=== PATIENT | female | born 1980 | race Caucasian/White ===

== ENCOUNTER 2019-07-02 13:32 | Observation (INO) | payer OTHER ==
--- NOTE | 2019-07-02 14:43 | ED ---
Extremity Problem HPI - General Chief complaint: Extremity Problem,Nontraumatic Stated complaint: hand swelling/anxiety Time Seen by Provider: 07/02/19 13:59 Source: patient Mode of arrival: ambulatory - History of Present Illness Initial comments: 30-year-old female presents to the emergency room today for evaluation of erythema swelling and pain to the left hand and wrist. Patient uses methamphetamines on a regular basis. She states that she noticed erythema and swelling over the past day and a half. She checked into [facility] today and he sent her to the emergency room for evaluation. Patient has increasing amounts of swelling and pain with flexion and extension of the wrist. She has pain with flexion and extension of the fingers overlying the dorsal as pect of the hand. Patient denies any pain in flexion and extension of the elbow. She reports 103 measured temperature earlier today. She was given medications at [facility]. She denies any headache dizziness or light headedness. No chest pain, shortness breath or thing breathing. Movement makes worse rest makes better. No other complaints. - Related Data Allergies Allergy/AdvReac Type Severity Reaction Status Date / Time No Known Allergies Allergy Verified 07/02/19 14:53 Review of Systems ROS Statement: Those systems with pertinent positive or pertinent negative responses have been documented in the HPI. ROS Other: All systems not noted in ROS Statement are negative. Past Medical History Past Medical History: No Reported History History of Any Multi-Drug Resistant Organisms: None Reported Past Surgical History: No Surgical Hx Reported Smoking Status: Current every day smoker Past Alcohol Use History: None Reported Past Drug Use History: Methamphetamine General Exam Limitations: no limitations General appearance: alert, in no apparent distress, anxious Head exam: Present: atraumatic, normocephalic Eye exam: Present: normal appearance Respiratory exam: Present: normal lung sounds bilaterally Cardiovascular Exam: Present: regular rate, normal rhythm, normal heart sounds GI/Abdominal exam: Present: soft, normal bowel sounds. Absent: distended, tenderness Extremities exam: Present: tenderness (There is erythema and warmth overlying the dorsal aspect of the left hand extending proximal to the left wrist. The erythema extends to the mid aspect of the forearm. There is trace pitting edema overlying the dorsal aspect of the left hand and wrist. Pain with flexion and extension with guarding of the flexion-extension of the left wrist. Patient has full range of motion of bilateral phalanges. There are 2+ radial and ulnar pulses. Capillary refills less than 2 seconds. Sensation is intact. No tenderness in the elbow.), normal capillary refill Neurological exam: Present: alert, oriented X3 Psychiatric exam: Present: normal affect, normal mood Skin exam: Present: warm, erythema (left dorsal hand and wrist, warm to the touch, area of nonfluctuant induration overlying the dorsal aspect of the forearm mid forearm radial aspect measures approximately 4 cm in diameter) Course Vital Signs 07/02/19 07/02/19 13:47 16:52 Temperature 97.8 F Pulse Rate 92 95 Respiratory 18 18 Rate Blood Pressure 119/70 110/61 O2 Sat by Pulse 99 99 Oximetry Medical Decision Making - Medical Decision Making 39-year-old female that presents the emergency room today for evaluation of erythema warmth and swelling to the left wrist hand and forearm. Guarded range of motion secondary to pain and swelling. This is consistent with a cellulitis. It is warm to the touch. Induration without fluctuant abscess formation overlying the dorsal aspect of the left arm. Patient has history of m ethamphetamine use, IV. Laboratory was completed which is normal. Lactic acid normal. Patient was given a dose of vancomycin and Zosyn. Patient will be admitted to the hospital for treatment of the cellulitis. She verbalizes understanding and agreement with this plan and care. - Lab Data Result diagrams: 07/02/19 14:55 07/02/19 14:55 Lab Results 07/02/19 07/02/19 07/02/19 Range/Units 14:55 14:55 14:55 WBC 7.3 (3.8-10.6) k/uL RBC 4.78 (3.80-5.40) m/uL Hgb 13.6 (11.4-16.0) gm/dL Hct 42.8 (34.0-46.0) % MCV 89.6 (80.0-100.0) fL MCH 28.5 (25.0-35.0) pg MCHC 31.8 (31.0-37.0) g/dL RDW 13.2 (11.5-15.5) % Plt Count 414 (150-450) k/uL Neutrophils % 64 % Lymphocytes % 18 % Monocytes % 7 % Eosinophils % 6 % Basophils % 2 % Neutrophils # 4.7 (1.3-7.7) k/uL Lymphocytes # 1.3 (1.0-4.8) k/uL Monocytes # 0.5 (0-1.0) k/uL Eosinophils # 0.4 (0-0.7) k/uL Basophils # 0.2 (0-0.2) k/uL Sodium 139 (137-145) mmol/L Potassium 3.9 (3.5-5.1) mmol/L Chloride 103 (98-107) mmol/L Carbon Dioxide 29 (22-30) mmol/L Anion Gap 7 mmol/L BUN 10 (7-17) mg/dL Creatinine 0.66 (0.52-1.04) mg/dL Est GFR (CKD-EPI)AfAm >90 (>60 ml/min/1.73 sqM) Est GFR (CKD-EPI)NonAf >90 (>60 ml/min/1.73 sqM) Glucose 89 (74-99) mg/dL Plasma Lactic Acid Bret 1.1 (0.7-2.0) mmol/L [facility] 8.7 (8.4-10.2) mg/dL Total Bilirubin 0.4 (0.2-1.3) mg/dL AST 24 (14-36) U/L ALT 21 (4-34) U/L Alkaline Phosphatase 116 (38-126) U/L Total Protein 7.9 (6.3-8.2) g/dL Albumin 3.9 (3.5-5.0) g/dL Disposition Clinical Impression: Cellulitis and abscess of hand, Cellulitis of left forearm Disposition: ADMITTED IP TO THIS HOSP Condition: Stable Is patient prescribed a controlled substance at d/c from ED?: No When asked, does pt state using other controlled substances?: Yes Referrals: None,Stated [Primary Care Provider] - 1-2 days
[2019-07-02 15:22] LABS: Basophils # (A) 0.2 k/uL (0-0.2); Basophils % (A) 2 %; Eosinophils # (A) 0.4 k/uL (0-0.7); Eosinophils % (A) 6 %; HCT 42.8 % (34.0-46.0); HGB 13.6 gm/dL (11.4-16.0); Lymphocytes # (A) 1.3 k/uL (1.0-4.8); Lymphocytes % (A) 18 %; MCH 28.5 pg (25.0-35.0); MCHC 31.8 g/dL (31.0-37.0); MCV 89.6 fL (80.0-100.0); Mean Platelet Volume 7.3; Monocytes # (A) 0.5 k/uL (0-1.0); Monocytes % (A) 7 %; Neutrophils # (A) 4.7 k/uL (1.3-7.7); Neutrophils % (A) 64 %; Platelet Count 414 k/uL (150-450); RBC 4.78 m/uL (3.80-5.40); RDW 13.2 % (11.5-15.5); WBC 7.3 k/uL (3.8-10.6)
[2019-07-02 15:25] LABS: ALT 21 U/L (4-34); AST 24 U/L (14-36); African American GFR (CKD) >90 (>60 ml/min/1.73 sqM); Albumin 3.9 g/dL (3.5-5.0); Alkaline Phosphatase 116 U/L (38-126); Anion Gap 7 mmol/L; Blood Urea Nitrogen 10 mg/dL (7-17); Calcium 8.7 mg/dL (8.4-10.2); Carbon Dioxide 29 mmol/L (22-30); Chloride 103 mmol/L (98-107); Glucose 89 mg/dL (74-99); Non-African American GFR(CKD) >90 (>60 ml/min/1.73 sqM); Potassium 3.9 mmol/L (3.5-5.1); Sodium 139 mmol/L (137-145); Total Bilirubin 0.4 mg/dL (0.2-1.3); Total Protein 7.9 g/dL (6.3-8.2)
[2019-07-02] MEDS ORDERED: KETOROLAC 30 MG/ML 1 ML VIAL IVP STA (16:38)
[2019-07-02] MEDS ORDERED: PIPERACILLIN-TAZOBACTAM 3.375 GM in SODIUM CHLORIDE 0.9% 100 ML IVPB STA (16:38)
[2019-07-02] MEDS ORDERED: VANCOMYCIN IV PER PHARMACY 1 EACH MISC MISCELLANE PRN (16:38)
[2019-07-02] MEDS ORDERED: VANCOMYCIN 1,500 MG in SODIUM CHLORIDE 0.9% 250 ML IVPB ONE (16:45)
[2019-07-02] MEDS ORDERED: ACETAMINOPHEN TAB 325 MG TAB PO PRN (16:58)
[2019-07-02] MEDS ORDERED: NALOXONE 0.4 MG/ML 1 ML VIAL IV PRN (16:58)
[2019-07-02] MEDS ORDERED: IBUPROFEN 400 MG TAB PO PRN (16:58)
[2019-07-02] MEDS ORDERED: ONDANSETRON 4 MG/2 ML VIAL IVP PRN (16:58)
--- NOTE | 2019-07-02 17:56 | P.HPIM ---
History of Present Illness H&P Date: 07/02/19 Chief Complaint: Left hand swelling 39-year-old female with depression him a IV drug abuse Patient comes in today due to swelling and redness of her left hand claims to be of 2 day duration after missing the vein while trying to inject herself with crystal meth. Patient advanced to IV drug abuse. She reports fevers at home she noticed that swelling and redness was progressing to the point where she is having pain when she is moving her hand redness extends up to the mid forearm pain is reported to be 10 out of 10 in severity sharp shooting pains especially when she tries to use the extremity no open wounds no drainage. She claims that she never had any infection like this before she denies any history of endocarditis. She denies any alcohol use she denies any smoking. Patient claims to not taking any medications at home other than antidepressant which she claims to be compliant with them. In the ED her vital signs and initial labs were pre-much unremarkable patient was admitted for IV antibiotics, to follow up cultures, and close monitoring for at least 24 hours Review of Systems Pertinent positives as noted in HPI. All other systems were reviewed and are negative Past Medical History Past Medical History: No Reported History History of Any Multi-Drug Resistant Organisms: None Reported Past Surgical History: No Surgical Hx Reported Past Psychological History: Depression Smoking Status: Current every day smoker Past Alcohol Use History: None Reported Past Drug Use History: Methamphetamine - Past Family History Family Family Medical History: No Reported History Medications and Allergies Allergies Allergy/AdvReac Type Severity Reaction Status Date / Time No Known Allergies Allergy Verified 07/02/19 14:53 Physical Exam Vitals: Vital Signs Temp Pulse Resp BP Pulse Ox 07/02/19 16:52 95 18 110/61 99 07/02/19 13:47 97.8 F 92 18 119/70 99 Intake and Output 07/02/19 07/02/19 07/02/19 06:59 14:59 22:59 Other: Weight 86.183 kg Constitutional: No acute distress, conversant, pleasant Eyes: Anicteric sclerae, moist conjunctiva, Pupils equal round reactive to light ENMT: NC/AT Oropharynx clear, no erythema, exudates Neck: Supple, FROM, no masses, or JVD No carotid bruits No thyromegaly Lungs: Clear to auscultation Clear to percussion Normal respiratory effort, no accessory muscle use Cardiovascular: Heart regular in rate and rhythm, No murmurs, gallops, or rubs No peripheral edema Abdominal: Soft Nontender, no guarding, rebound or rigidity Abdomen moving with respiration Normoactive bowel sounds No hepatomegaly, No splenomegaly No palpable mass No abdominal wall hernia noted Skin: Extensive redness and swelling of the left hand extending up to the mid left forearm mainly on the dorsal aspect with an area over the mid forearm that is slightly swollen and fluctuant no drainage warm to the touch. Tenderness to passive and active motion of the fingers over the left hand. Capillary refill is immediate over the left fingers. Multiple bruises over the right forearm and hand over the dorsum of the right hand indicative of IV drug abuse sites. Otherwise Normal temperature, tone, texture, turgor Extremities: No digital cyanosis No clubbing Pedal pulses intact and symmetrical Radial pulses intact and symmetrical No calf tenderness Psychiatric: Alert and oriented to person, place and time Appropriate affect fair judgement Neuro Muscles Strength 5/5 in all 4 extremities Sensation to light touch grossly present throughout Cranial nerves II-XII grossly intact No focal sensory deficits Lymphatics: no palpable cervical or supraclavicular , or inguinal lymph n odes Results CBC & Chem 7: 07/02/19 14:55 07/02/19 14:55 Assessment and Plan Assessment: 39-year-old female with with depression, and IV drug abuse. Comes in due to swelling redness and fevers over her left hand extending to the mid left forearm. Due to IV drug abuse. Patient admitted for cellulitis of the left upper extremity and left hand degenerative drug abuse with anticipated length of stay less than tWo midnight Plan: Cellulitis of the left hand and forearm with left hand swelling IV drug abuse Neurovascular assessment of the left hand every 4 hours Elevation of the left upper extremity Toradol when necessary Vancomycin Follow-up cultures ID consultation Patient counseled to quit drug of abuse Xanax when necessary for anxiety Depression Resume home meds DVT prophylaxis heparin subcu 3 times a day CODE STATUS: Full code Discussed with: Patient, ER, RN Anticipated length of stay less than [address]: Home A total of 60 minutes was spent on the care of this complex patient more than 50% of the time was spent in counseling and care coordination.
[2019-07-02] MEDS: ALPRAZolam 1 MG TAB PO PRN (18:26)
[2019-07-02] MEDS: SODIUM CHLORIDE 0.9% 1,000 ML IV SCH (22:12)
[2019-07-02] MEDS: KETOROLAC 30 MG/ML 1 ML VIAL IVP PRN (22:13)
[2019-07-02] MEDS: HEPARIN SODIUM,PORCINE 5,000 UNIT/ML 1 ML VIAL SQ SCH (22:13)
[2019-07-03] MEDS: ALPRAZolam 1 MG TAB PO PRN ×4 (02:21→21:09)
[2019-07-03] MEDS: VANCOMYCIN 1,500 MG in SODIUM CHLORIDE 0.9% 250 ML IVPB SCH ×3 (02:22→17:43)
[2019-07-03] MEDS: SODIUM CHLORIDE 0.9% 1,000 ML IV SCH ×3 (05:27→21:52)
--- NOTE | 2019-07-03 07:00 | CONS ---
CONSULTATION REASON FOR CONSULTATION: Left hand cellulitis. HISTORY OF PRESENT ILLNESS: The patient is a 39-year-old female with a past medical history significant for IV drug use, presenting to the ER at [facility] with chief complaints of left hand swelling and redness that has been going on for the last 2 days. Apparently the patient does use methamphetamine on a regular basis and she injected last about 2 days ago possibly missed the vein. The area subsequent becoming swollen, red and painful. The patient describes the pain to be throbbing at times almost 10/10 in severity with associated swelling and redness of the left hand dorsum as well as to the wrist area. The patient apparently did have a fever of 103 degrees Fahrenheit this morning for which the patient has been sent to the [facility] for further evaluation. On arrival to the ER, the patient was afebrile. However, the patient has been slightly tachycardic. White count was normal. The patient did have blood cultures drawn and she has been started on vancomycin. Infectious Disease was consulted for further recommendations regarding antibiotic therapy. REVIEW OF SYSTEMS: Positive points have been mentioned in HPI. Rest of the systems are negative. PAST MEDICAL HISTORY: Drug use. PAST SURGICAL HISTORY: No surgeries. SOCIAL HISTORY: Current everyday smoker and did admit to methamphetamine use. ALLERGIES: No known drug allergies. MEDICATIONS: Medications currently include the patient is on vancomycin 1500 mg q.8 hour. She is on IV fluids, Zofran, Narcan, Toradol, Motrin, heparin, Xanax, and Tylenol. PHYSICAL EXAMINATION: Blood pressure is 128/82 with a pulse of 101, temperature 97.8. She is 100% on room air. General description is a middle-aged female, lying in bed in no distress. No tachypnea or accessory muscle of respiration use. HEENT: Examination shows no pallor or scleral icterus. Oral mucous membranes dry. No pharyngeal erythema or thrush. NECK: Trachea central. No thyromegaly. LUNGS: Unlabored breathing, clear to auscultation anteriorly. No wheeze or crackle. HEART: S1, S2. Regular rate and rhythm. No added sounds. ABDOMEN: Soft, no tenderness. No guarding or rigidity. Left hand dorsum did have swelling, redness and no induration or fluctuation was noticed which is area slightly warm and tender to touch. No drainage. NEUROLOGICALLY: Patient is awake, alert, oriented x3. Mood and affect normal. LABS: Hemoglobin 136, white count 7.3. Creatinine 0.66. Blood cultures obtained which are currently pending. DIAGNOSTIC IMPRESSION AND PLAN: Patient with left hand dorsum cellulitis in this patient who apparently missed a vein when she was injecting her methamphetamine with history of IV drug use, highly concerning for a gram-positive skin infection from a gram-positive bacteria such as strep and possibly this is methicillin-resistant Staphylococcus aureus, less likely gram-negative infection. PLAN: 1. Vancomycin pharmacy to dose target of 15 while watching the kidney function and Vanco trough closely. 2. Marked the area of redness. 3. We will follow up on clinical condition and culture to further adjust medication if needed. Thank you for this consultation. Will follow this patient along with you. MMHENOKL / IJN: [id number] /
[2019-07-03] MEDS ORDERED: VANCOMYCIN IV PER PHARMACY 1 EACH MISC MISCELLANE PRN (07:52)
[2019-07-03 08:23] LABS: Basophils # (A) 0.1 k/uL (0-0.2); Basophils % (A) 1 %; Eosinophils # (A) 0.5 k/uL (0-0.7); Eosinophils % (A) 9 %; HCT 39.1 % (34.0-46.0); HGB 11.9 gm/dL (11.4-16.0); Lymphocytes # (A) 1.1 k/uL (1.0-4.8); Lymphocytes % (A) 18 %; MCHC 30.5 g/dL (31.0-37.0); Mean Platelet Volume 7.5; Monocytes # (A) 0.4 k/uL (0-1.0); Monocytes % (A) 6 %; Neutrophils # (A) 3.8 k/uL (1.3-7.7); Neutrophils % (A) 64 %; Platelet Count 331 k/uL (150-450); RBC 4.25 m/uL (3.80-5.40); RDW 13.1 % (11.5-15.5); WBC 5.9 k/uL (3.8-10.6)
[2019-07-03 08:35] LABS: ALT 19 U/L (4-34); AST 23 U/L (14-36); African American GFR (CKD) >90 (>60 ml/min/1.73 sqM); Albumin 3.2 g/dL (3.5-5.0); Alkaline Phosphatase 91 U/L (38-126); Anion Gap 8 mmol/L; Blood Urea Nitrogen 14 mg/dL (7-17); Calcium 8.1 mg/dL (8.4-10.2); Carbon Dioxide 24 mmol/L (22-30); Chloride 106 mmol/L (98-107); Glucose 132 mg/dL (74-99); Non-African American GFR(CKD) >90 (>60 ml/min/1.73 sqM); Potassium 3.9 mmol/L (3.5-5.1); Sodium 138 mmol/L (137-145); Total Bilirubin 0.5 mg/dL (0.2-1.3); Total Protein 6.9 g/dL (6.3-8.2)
[2019-07-03] MEDS: HEPARIN SODIUM,PORCINE 5,000 UNIT/ML 1 ML VIAL SQ SCH ×3 (08:53→21:09)
[2019-07-03] MEDS: KETOROLAC 30 MG/ML 1 ML VIAL IVP PRN ×3 (08:56→19:22)
--- NOTE | 2019-07-03 13:29 | P.PN ---
Subjective Progress Note Date: 07/03/19 Principal diagnosis: Patient seen for follow-up left upper extremity cellulitis of the forearm and hand due to IV drug abuse Patient seen and examined denies any fevers or chills reports less pain when she moves the hand now she feels her swelling has went down redness is improving denies any chest pain or trouble breathing otherwise Tolerating by mouth intake denies nausea vomiting Objective - Vital Signs Vital signs: Vital Signs Temp 98.4 F 07/03/19 07:21 Pulse 78 07/03/19 07:21 Resp 16 07/03/19 07:21 BP 115/82 07/03/19 07:21 Pulse Ox 100 07/03/19 07:21 Intake & Output 07/02/19 07/03/19 07/03/19 18:59 06:59 18:59 Weight 86.183 kg - Exam Constitutional: vital signs stable, Not in acute distress, pleasant, conversant Lungs: Clear to auscultation bilaterally, clear to percussion, normal respiratory effort Cardiovascular: Regular rate and rhythm, no murmurs, no gallops, no rubs, no peripheral edema Skin: Examination of the skin over the left hand and forearm showing regression of the erythema and induration. No tenderness to palpation. No drainage no open wounds Extremities: Left hand swelling has improved compared to yesterday, capillary refill is immediate over the left hand, some discomfort with passive and active movement of the left fingers but improved compared to yesterday. Psych: Alert, oriented to place, person and time, appropriate affect, intact judgment - Labs CBC & Chem 7: 07/03/19 07:52 07/03/19 07:52 Labs: Abnormal Lab Results - Last 24 Hours (Table) 07/03/19 07/03/19 Range/Units 07:52 07:52 MCHC 30.5 L (31.0-37.0) g/dL Glucose 132 H (74-99) mg/dL [facility] 8.1 L (8.4-10.2) mg/dL Albumin 3.2 L (3.5-5.0) g/dL Assessment and Plan Assessment: 39-year-old female with with depression, and IV drug abuse. Comes in due to swelling redness and fevers over her left hand extending to the mid left forearm. Due to IV drug abuse. Patient admitted for cellulitis of the left upper extremity and left hand degenerative drug abuse with anticipated length of stay less than tWo midnight 07/03 Patient doing better today continues to be on vancomycin ID agrees with current antibiotics continue to monitor and follow up on blood culture results. Optimize pain control Await final culture results and ID recommendations for discharge planning possibly tomorrow Plan: Cellulitis of the left hand and forearm with left hand swelling IV drug abuse Neurovascular assessment of the left hand every 4 hours Elevation of the left upper extremity Toradol when necessary Vancomycin, dosing by pharmacy Follow-up cultures ID following Patient counseled to quit drug of abuse Xanax when necessary for anxiety Depression Resume home meds DVT prophylaxis heparin subcu 3 times a day Possible discharge 07/04, still await final blood culture results for final antibiotics recommendations
--- NOTE | 2019-07-03 22:21 | PN ---
PROGRESS NOTE DATE OF SERVICE: 07/03/2019 REASON FOR FOLLOWUP: Right hand dorsum and forearm abscess and cellulitis secondary to drug use. INTERVAL HISTORY: The patient is currently afebrile. She has been breathing comfortably. Pain to the left hand dorsum and the forearm has slightly decreased. She still has a slight area of swelling, but no open area or any drainage. Denies having any chest pain, shortness of breath or cough. No abdominal pain or diarrhea. PHYSICAL EXAMINATION: Blood pressure 158/70 with a pulse of 88, temperature 97.5. She is 97% on room air. General description is a middle-aged female lying in bed in no distress. RESPIRATORY SYSTEM: Unlabored breathing. Clear to auscultation anteriorly. HEART: S1, S2. Regular rate and rhythm. ABDOMEN: Soft. No tenderness. Left hand dorsum and the forearm small area of swelling. No fluctuation. It is mostly indurated and some redness. LABS: Blood culture has been negative. White count normal. DIAGNOSTIC IMPRESSION AND PLAN: Patient with left hand dorsum and forearm cellulitis and small abscess from injection drug use, likely from a Gram-positive skin ang. Showing some clinical improvement. The vancomycin will be continued. The area has been marked to make sure it is regressing and not getting any bigger. If the area becomes fluctuant, may benefit from drainage. Not currently, though. Will reevaluate the patient tomorrow and continue with supportive care. MMODL / IJN: [id number] /
[2019-07-04] MEDS ORDERED: VANCOMYCIN TROUGH DUE 1 EACH MISC MISCELLANE ONE (01:00)
[2019-07-04 01:40] LABS: African American GFR (CKD) >90 (>60 ml/min/1.73 sqM); Non-African American GFR(CKD) >90 (>60 ml/min/1.73 sqM)
[2019-07-04] MEDS: VANCOMYCIN 1,500 MG in SODIUM CHLORIDE 0.9% 250 ML IVPB SCH (02:07)
[2019-07-04] MEDS: ALPRAZolam 1 MG TAB PO PRN ×3 (06:10→17:29)
[2019-07-04] MEDS: KETOROLAC 30 MG/ML 1 ML VIAL IVP PRN ×3 (06:10→21:39)
[2019-07-04] MEDS: HEPARIN SODIUM,PORCINE 5,000 UNIT/ML 1 ML VIAL SQ SCH ×3 (08:18→21:31)
[2019-07-04] MEDS: SODIUM CHLORIDE 0.9% 1,000 ML IV SCH ×2 (09:19→18:46)
[2019-07-04] MEDS: VANCOMYCIN 1,250 MG in SODIUM CHLORIDE 0.9% 250 ML IVPB SCH ×2 (09:24→17:26)
--- NOTE | 2019-07-04 09:43 | P.PN ---
Subjective Progress Note Date: 07/04/19 Principal diagnosis: Patient seen for follow-up left upper extremity cellulitis of the forearm and hand due to IV drug abuse Patient seen and examined denies any fevers or chills she is still concerned about her hand , still a little swollen but improving on daily basis , denies any pain with movement tolerating PO intake Objective - Vital Signs Vital signs: Vital Signs Temp 97.8 F 07/04/19 05:09 Pulse 81 07/04/19 05:09 Resp 20 07/04/19 08:00 BP 136/99 07/04/19 05:09 Pulse Ox 100 07/04/19 05:09 Intake & Output 07/03/19 07/04/19 07/04/19 18:59 06:59 18:59 Intake Total 540 1200 Balance 540 1200 Weight 86.183 kg Intake: Oral 540 1200 Other: # Voids 1 1 - Exam Constitutional: vital signs stable, Not in acute distress, pleasant, conversant Lungs: Clear to auscultation bilaterally, clear to percussion, normal respiratory effort Cardiovascular: Regular rate and rhythm, no murmurs, no gallops, no rubs, no peripheral edema Skin: Erythema improved significantly now its concise to 2 locations with some induration and mild fluctuation 1 over the dorsum of the left wrist and the other over the dorsum mid left forearm no tenderness to palpation no drainage. No tenderness to palpation. No drainage no open wounds Extremities: Left hand swelling has improved compared to yesterday, capillary refill is immediate over the left hand, minimal discomfort to active range of motion. Psych: Alert, oriented to place, person and time, appropriate affect, intact judgment - Labs CBC & Chem 7: 07/03/19 07:52 07/04/19 01:10 Labs: Microbiology - Last 24 Hours (Table) 07/02/19 14:55 Blood Culture - Preliminary Blood No Growth after 24 hours Assessment and Plan Assessment: 39-year-old female with with depression, and IV drug abuse. Comes in due to swelling redness and fevers over her left hand extending to the mid left forearm. Due to IV drug abuse. Patient admitted for cellulitis of the left upper extremity and left hand degenerative drug abuse with anticipated length of stay less than tWo midnight 07/03 Patient doing better today continues to be on vancomycin ID agrees with current antibiotics continue to monitor and follow up on blood culture results. Optimize pain control Await final culture results and ID recommendations for discharge planning possibly tomorrow 07/04 Patient shows significant improvement currently on vancomycin. Blood cultures negative To areas of erythema and induration with slight fluctuation concerning for underlying abscess Swelling of the hand has improved significantly minimal discomfort with active range of motion. Await general surgery evaluation for need of drainage Possible discharge in the morning, on oral antibiotics Plan: Cellulitis of the left hand and forearm with left hand swelling, improving 2 areas of erythema and induration concerning for underlying small abscess, will obtain general surgery input regarding any drainage IV drug abuse Neurovascular assessment of the left hand every 4 hours Elevation of the left upper extremity Toradol when necessary Vancomycin, dosing by pharmacy Follow-up cultures, negative to date ID following Patient counseled to quit drug of abuse Xanax when necessary for anxiety Depression Resume home meds DVT prophylaxis heparin subcu 3 times a day Possible discharge 07/05 Await further improvement in the swelling of the left hand Await surgery evaluation regarding drainage Await final recommendations from ID regarding antibiotic choice, possibly Eliseo trim
[2019-07-04 10:00] LABS: ALT 22 U/L (4-34); AST 32 U/L (14-36); African American GFR (CKD) >90 (>60 ml/min/1.73 sqM); Albumin 3.4 g/dL (3.5-5.0); Alkaline Phosphatase 99 U/L (38-126); Anion Gap 9 mmol/L; Blood Urea Nitrogen 16 mg/dL (7-17); Calcium 8.5 mg/dL (8.4-10.2); Carbon Dioxide 23 mmol/L (22-30); Chloride 108 mmol/L (98-107); Glucose 80 mg/dL (74-99); Non-African American GFR(CKD) >90 (>60 ml/min/1.73 sqM); Sodium 140 mmol/L (137-145); Total Bilirubin 0.5 mg/dL (0.2-1.3); Total Protein 7.3 g/dL (6.3-8.2)
[2019-07-04 10:18] LABS: Potassium 4.6 mmol/L (3.5-5.1)
--- NOTE | 2019-07-04 11:00 | P.CNOR ---
History of Present Illness - [facility] Consult date: 07/03/19 Consult reason: other History of present illness: Patient is a 30-year-old female seen at bedside this morning in consultation for left wrist pain and swelling. She presented to the emergency room on 07/02/2019 with complaints of erythema, swelling and pain to the left hand and wrist. Patient stated that she uses methamphetamines on a regular basis. She states that she noticed erythema and swelling at the injection sites of her left arm for the past 2 days.. She checked into [facility] where she was then sent her to the emergency room for evaluation. Patient has pain with flexion and extension of the wrist. She states that it has improved some over the past 24 hours or so since being on antibiotics. She is denying numbness or tingling. She is currently denying fever or chills. Patient denies any pain in flexion and extension of the elbow. Review of Systems All systems: negative Past Medical History Past Medical History: No Reported History History of Any Multi-Drug Resistant Organisms: None Reported Past Surgical History: Appendectomy Past Anesthesia/Blood Transfusion Reactions: No Reported Reaction Past Psychological History: Depression Smoking Status: Current every day smoker Past Alcohol Use History: None Reported Past Drug Use History: Methamphetamine - Past Family History Family Family Medical History: Hypertension Medications and Allergies Home Medications Medication Instructions Recorded Confirmed Type ARIPiprazole [Abilify] 5 mg PO DAILY 07/02/19 07/02/19 History Citalopram Hydrobromide 10 mg PO DAILY 07/02/19 07/02/19 History [Citalopram HBr] busPIRone HCL 15 mg PO BID 07/02/19 07/02/19 History traZODone HCL 100 mg PO HS 07/02/19 07/02/19 History Allergies Allergy/AdvReac Type Severity Reaction Status Date / Time No Known Allergies Allergy Verified 07/02/19 18:14 Physical Examination Inspection of the left upper extremity shows 2 areas of induration at the dorsum of the wrist and midforearm. There is no active bleeding or drainage. These are circular in nature and measured approximately 3 cm. There is no streaking. There is mild surrounding erythema. There is no focal fluid collection in the area of the dorsum of the hand, wrist and forearm. Neurovascular status is intact with full motor and sensation throughout the left upper extremity. She does have pain with wrist extension and flexion as well as finger extension and flexion. She has painless range of motion of the elbow and shoulder. 2+ radial pulses present. Less than 2 second capillary refill is present. Results - Labs Labs: Abnormal Lab Results - Last 24 Hours (Table) 07/04/19 Range/Units 08:49 Chloride 108 H (98-107) mmol/L Albumin 3.4 L (3.5-5.0) g/dL Microbiology - Last 24 Hours (Table) 07/02/19 14:55 Blood Culture - Preliminary Blood No Growth after 24 hours H & H 07/02/19 07/03/19 Range/Units 14:55 07:52 Hgb 13.6 11.9 (11.4-16.0) gm/dL Hct 42.8 39.1 (34.0-46.0) % Result Diagrams: 07/03/19 07:52 07/04/19 08:49 Assessment and Plan (1) Cellulitis and abscess of hand Narrative/Plan: There are no plans for immediate surgical intervention as there is no appreciabl e focal abscess or fluid collection that can be incised and drained. Recommend continued IV antibiotics per infectious disease as well as elevation. We'll also order x-rays of the wrist and forearm. We will continue to monitor and make further recommendations as appropriate. Current Visit: Yes Status: Acute Priority: Medium Code(s): L03.119 - CELLULITIS OF UNSPECIFIED PART OF LIMB; L02.519 - CUTANEOUS ABSCESS OF UNSPECIFIED HAND SNOMED Code(s): 753845074 (2) Cellulitis of left forearm Current Visit: Yes Status: Acute Priority: Medium Code(s): L03.114 - CELLULITIS OF LEFT UPPER LIMB SNOMED Code(s): 31869838 Time with Patient: Less than 30
--- NOTE | 2019-07-04 11:51 | P.PN ---
Subjective Progress Note Date: 07/04/19 Principal diagnosis: left wrist/forearm cellulitis Patient is seen at bedside this morning. We are following for her left wrist and forearm cellulitis. She has no new complaints today. She feels like it has continued to improve some. She has been on IV antibiotics per ID. She feels her hand and finger movement is improved with less pain. She denies numbness, tingling, fever, chills or other. Objective - Vital Signs Vital signs: Vital Signs Temp 97.8 F 07/04/19 05:09 Pulse 81 07/04/19 05:09 Resp 20 07/04/19 08:00 BP 136/99 07/04/19 05:09 Pulse Ox 100 07/04/19 05:09 Intake & Output 07/03/19 07/04/19 07/04/19 18:59 06:59 18:59 Intake Total 540 1200 Balance 540 1200 Weight 86.183 kg Intake: Oral 540 1200 Other: # Voids 1 1 - Exam Inspection of the left upper extremity shows 2 demarcated indurated areas at the dorsum of the wrist and forearm as before without signs of worsening. The mild diffuse erythema and swelling of the hand and forearm are improved versus yesterday. She has less pain with wrist/finger flexion and extension. There is no appreciable focal abcess or fluid collection. It is not overly hot to touch. Motor and sensation intact throughout left upper extremity. 2+ radial pulse and less than 2 sec cap refill present. - Constitutional General appearance: Present: no acute distress - Labs CBC & Chem 7: 07/03/19 07:52 07/04/19 08:49 Labs: Abnormal Lab Results - Last 24 Hours (Table) 07/04/19 Range/Units 08:49 Chloride 108 H (98-107) mmol/L Albumin 3.4 L (3.5-5.0) g/dL Microbiology - Last 24 Hours (Table) 07/02/19 14:55 Blood Culture - Preliminary Blood No Growth after 24 hours Assessment and Plan (1) Cellulitis and abscess of hand Narrative/Plan: There continues to be no plans for immediate surgical intervention as she is showing signs of improvement as well as there is no appreciable focal abscess or fluid collection that can be incised and drained. She is also afebrile and her WBC is WNL. Recommend continued IV antibiotics per infectious disease as well as elevation of the left upper extremity. X-rays of the wrist and forearm are pending. We will continue to monitor and make further recommendations as appropriate. Current Visit: Yes Status: Acute Priority: Medium Code(s): L03.119 - CELLULITIS OF UNSPECIFIED PART OF LIMB; L02.519 - CUTANEOUS ABSCESS OF UNSPECIFIED HAND SNOMED Code(s): 127677240 (2) Cellulitis of left forearm Current Visit: Yes Status: Acute Priority: Medium Code(s): L03.114 - CELLULITIS OF LEFT UPPER LIMB SNOMED Code(s): 65997181
--- NOTE | 2019-07-04 14:17 | XR ---
Left forearm HISTORY: Cellulitis, infection 2 views of the left forearm Bone mineralization, joint spaces and alignment are maintained. There is no fracture or dislocation. No radiopaque foreign body. There is soft tissue swelling. No evident periosteal reaction to suggest osteomyelitis. IMPRESSION: Correlate for edema, cellulitis, follow-up as indicated.
--- NOTE | 2019-07-04 14:29 | XR ---
Left wrist HISTORY: Left wrist cellulitis 2 views of the left wrist Bone mineralization, joint spaces and alignment are maintained. No fracture or dislocation. Question soft tissue swelling. IMPRESSION: No acute bony abnormality
--- NOTE | 2019-07-04 15:26 | P.GSCN ---
History of Present Illness Consult date: 07/04/19 Reason for Consult: arm abscess Requesting physician: Rosalinda Nicole History of present illness: CHIEF COMPLAINT: Abscess HISTORY OF PRESENT ILLNESS: 39-year-old female who was admitted to the hospital secondary to left upper extremity abscess secondary to IV drug use. General surgery was consulted for further evaluation. Patient seen and examined the bedside with Dr. Urban. Patient states her pain to the left upper extremity has improved today. She reports decrease in redness and swelling as well. PAST MEDICAL HISTORY: See list. PAST SURGICAL HISTORY: See list. SOCIAL HISTORY: History of IV drug abuse REVIEW OF SYSTEMS: CONSTITUTIONAL: Denies fever or chills. HEENT: Denies blurred vision, vision changes, or eye pain. Denies hemoptysis CARDIOVASCULAR: Denies chest pain or pressure. RESPIRATORY: No shortness of breath. GASTROINTESTINAL: Denies abdominal pain. Denies nausea or vomiting. HEMATOLOGIC: Denies bleeding disorders. GENITOURINARY: Denies any blood in urine. SKIN: Denies pruitis. Denies rash. Reports abscess to left arm. PHYSICAL EXAM: VITAL SIGNS: Reviewed. GENERAL: Well-developed in no acute distress. HEENT: No sclera icterus. Extraocular movements grossly intact. Moist buccal mucosa. Head is atraumatic, normocephalic. ABDOMEN: Soft. Nondistended. Nontender. NEUROLOGIC: Alert and oriented. Cranial nerves II through XII grossly intact. SKIN: Left upper extremity with evidence of abscess/cellulitis x 2 (wrist and forearm). No active drainage. LABORATORY DATA: WBC 5.9. Hemoglobin 11.9. Platelet count 331. IMAGIN. Wrist x-ray: No acute bony abnormality 2. Left forearm x-ray: No evidence of osteomyelitis. Correlate for edema/cellulitis. No fracture or dislocation. ASSESSMENT: 1. Left forearm and wrist abscess with cellulitis PLAN: Continue IV antibiotics per infectious disease Orthopedics is also following. Will defer any I&D if required to orthopedics service Nurse practitioner note has been reviewed by physician. Signing provider agrees with the documented findings, assessment, and plan of care. Past Medical History Past Medical History: No Reported History History of Any Multi-Drug Resistant Organisms: None Reported Past Surgical History: Appendectomy Past Anesthesia/Blood Transfusion Reactions: No Reported Reaction Past Psychological History: Depression Smoking Status: Current every day smoker Past Alcohol Use History: None Reported Past Drug Use History: Methamphetamine - Past Family History Family Family Medical History: Hypertension Medications and Allergies Home Medications Medication Instructions Recorded Confirmed Type ARIPiprazole [Abilify] 5 mg PO DAILY 07/02/19 07/02/19 History Citalopram Hydrobromide 10 mg PO DAILY 07/02/19 07/02/19 History [Citalopram HBr] busPIRone HCL 15 mg PO BID 07/02/19 07/02/19 History traZODone HCL 100 mg PO HS 07/02/19 07/02/19 History Allergies Allergy/AdvReac Type Severity Reaction Status Date / Time No Known Allergies Allergy Verified 07/02/19 18:14 Surgical - Exam Vital Signs Temp Pulse Resp BP Pulse Ox 97.8 F 92 18 119/70 99 07/02/19 13:47 07/02/19 13:47 07/02/19 13:47 07/02/19 13:47 07/02/19 13:47 Results - Labs 07/03/19 07:52 07/04/19 08:49 Abnormal Lab Results - Last 24 Hours (Table) 07/04/19 Range/Units 08:49 Chloride 108 H (98-107) mmol/L Albumin 3.4 L (3.5-5.0) g/dL Microbiology - Last 24 Hours (Table) 07/02/19 14:55 Blood Culture - Preliminary Blood No Growth after 24 hours Diabetes panel 07/04/19 07/04/19 Range/Units 01:10 08:49 Sodium 140 (137-145) mmol/L Potassium 4.6 (3.5-5.1) mmol/L Chloride 108 H (98-107) mmol/L Carbon Dioxide 23 (22-30) mmol/L BUN 16 (7-17) mg/dL Creatinine 0.68 0.68 (0.52-1.04) mg/dL Glucose 80 (74-99) mg/dL Calcium 8.5 (8.4-10.2) mg/dL AST 32 (14-36) U/L ALT 22 (4-34) U/L Alkaline Phosphatase 99 (38-126) U/L Total Protein 7.3 (6.3-8.2) g/dL Albumin 3.4 L (3.5-5.0) g/dL Calcium panel 07/04/19 Range/Units 08:49 Calcium 8.5 (8.4-10.2) mg/dL Albumin 3.4 L (3.5-5.0) g/dL Pituitary panel 07/04/19 07/04/19 Range/Units 01:10 08:49 Sodium 140 (137-145) mmol/L Potassium 4.6 (3.5-5.1) mmol/L Chloride 108 H (98-107) mmol/L Carbon Dioxide 23 (22-30) mmol/L BUN 16 (7-17) mg/dL Creatinine 0.68 0.68 (0.52-1.04) mg/dL Glucose 80 (74-99) mg/dL Calcium 8.5 (8.4-10.2) mg/dL Adrenal panel 07/04/19 07/04/19 Range/Units 01:10 08:49 Sodium 140 (137-145) mmol/L Potassium 4.6 (3.5-5.1) mmol/L Chloride 108 H (98-107) mmol/L Carbon Dioxide 23 (22-30) mmol/L BUN 16 (7-17) mg/dL Creatinine 0.68 0.68 (0.52-1.04) mg/dL Glucose 80 (74-99) mg/dL Calcium 8.5 (8.4-10.2) mg/dL Total Bilirubin 0.5 (0.2-1.3) mg/dL AST 32 (14-36) U/L ALT 22 (4-34) U/L Alkaline Phosphatase 99 (38-126) U/L Total Protein 7.3 (6.3-8.2) g/dL Albumin 3.4 L (3.5-5.0) g/dL
[2019-07-04 19:57] VITALS: RESP 20
[2019-07-05] MEDS: VANCOMYCIN 1,250 MG in SODIUM CHLORIDE 0.9% 250 ML IVPB SCH ×2 (01:08→09:28)
[2019-07-05] MEDS: ALPRAZolam 1 MG TAB PO PRN (01:08)
[2019-07-05] MEDS: SODIUM CHLORIDE 0.9% 1,000 ML IV SCH (04:44)
--- NOTE | 2019-07-05 05:47 | PN ---
PROGRESS NOTE DATE OF SERVICE: 07/04/2019 REASON FOR FOLLOWUP: Left forearm pain and abscess secondary to IV drug use. INTERVAL HISTORY: The patient has been afebrile. Patient has been breathing comfortably. Overall pain and discomfort to the left forearm and area of cellulitis and abscess has decreased. Denies having any chest pain, shortness of breath or cough. No nausea or vomiting. No abdominal pain or diarrhea. PHYSICAL EXAMINATION: Blood pressure 106/71 with pulse 81, temperature 97.5. She is 96% one room air. General description is a middle-aged female, lying in bed in no distress. RESPIRATORY SYSTEM: Unlabored breathing, clear to auscultation anteriorly. HEART: S1, S2. Regular rate and rhythm. ABDOMEN: Soft, no tenderness. Left forearm and hand swelling has slightly decreased. LABS: Blood culture has been negative. White count is normal. DIAGNOSTIC IMPRESSION AND PLAN: Patient with left forearm and dorsum of the hand abscess and cellulitis from injection drug use. The patient has pain even at by Orthopedic Surgery, so far no plan for the drainage. The patient is covered with vancomycin to continue. May benefit from ID at least for the culture. Continue with supportive care. MMODL / IJN: [id number] /
[2019-07-05 07:45] LABS: Basophils # (A) 0.1 k/uL (0-0.2); Basophils % (A) 3 %; Eosinophils # (A) 0.5 k/uL (0-0.7); Eosinophils % (A) 10 %; HCT 41.8 % (34.0-46.0); Lymphocytes # (A) 1.1 k/uL (1.0-4.8); Lymphocytes % (A) 22 %; MCH 28.2 pg (25.0-35.0); MCHC 31.1 g/dL (31.0-37.0); MCV 90.7 fL (80.0-100.0); Mean Platelet Volume 7.3; Monocytes # (A) 0.4 k/uL (0-1.0); Monocytes % (A) 9 %; Neutrophils # (A) 2.5 k/uL (1.3-7.7); Neutrophils % (A) 52 %; Platelet Count 409 k/uL (150-450); RBC 4.61 m/uL (3.80-5.40); RDW 12.7 % (11.5-15.5); WBC 4.7 k/uL (3.8-10.6)
[2019-07-05] MEDS: HEPARIN SODIUM,PORCINE 5,000 UNIT/ML 1 ML VIAL SQ SCH (08:23)
[2019-07-05 09:40] VITALS: BP 110/66; PULSE 98; TEMP 98.5
--- NOTE | 2019-07-05 10:16 | P.PN ---
Subjective Progress Note Date: 07/05/19 Principal diagnosis: left wrist/forearm cellulitis Patient is seen at bedside this morning. We are following for her left wrist and forearm cellulitis. She has no new complaints today. She feels like it has continued to improve. She has been on IV antibiotics per ID. She feels her hand and finger movement is improved with less pain. She denies numbness, tingling, fever, chills or other. Objective - Vital Signs Vital signs: Vital Signs Temp 98.5 F 07/05/19 09:30 Pulse 98 07/05/19 09:30 Resp 20 07/05/19 08:00 BP 110/66 07/05/19 09:30 Pulse Ox 97 07/05/19 05:22 Intake & Output 07/04/19 07/05/19 07/05/19 18:59 06:59 18:59 Intake Total 2725 Balance 2725 Intake: Oral 2725 Other: # Voids 4 6 # Bowel Movements 1 - Exam Inspection of the left upper extremity shows 2 demarcated indurated areas at the dorsum of the wrist and forearm that appear to be improving. The mild diffuse erythema and swelling of the hand and forearm continue to improve. She has less pain with wrist/finger flexion and extension. There is no appreciable focal abcess or fluid collection. It is not overly hot to touch. Motor and sensation intact throughout left upper extremity. 2+ radial pulse and less than 2 sec cap refill present. - Labs CBC & Chem 7: 07/05/19 07:19 07/04/19 08:49 Labs: Abnormal Lab Results - Last 24 Hours (Table) 07/04/19 Range/Units 08:49 Chloride 108 H (98-107) mmol/L Albumin 3.4 L (3.5-5.0) g/dL Microbiology - Last 24 Hours (Table) 07/02/19 14:55 Blood Culture - Preliminary Blood No Growth after 48 hours - Imaging and Cardiology Xrays of left wrist and forearm show no gas, foreign body or fractures Assessment and Plan (1) Cellulitis and abscess of hand Narrative/Plan: There continues to be no plans for immediate surgical intervention as she continues to show signs of improvement as well as there is no appreciable focal abscess or fluid collection that can be incised and drained. She is also remains afebrile and her WBC is WNL. Recommend continued IV antibiotics per infectious disease as well as elevation of the left upper extremity. X-rays of the wrist and forearm are negative. We will continue to monitor and make further recommendations as appropriate. Current Visit: Yes Status: Acute Priority: Medium Code(s): L03.119 - CELLULITIS OF UNSPECIFIED PART OF LIMB; L02.519 - CUTANEOUS ABSCESS OF UNSPECIFIED HAND SNOMED Code(s): 617161241 (2) Cellulitis of left forearm Current Visit: Yes Status: Acute Priority: Medium Code(s): L03.114 - CELLULITIS OF LEFT UPPER LIMB SNOMED Code(s): 45317904
--- NOTE | 2019-07-05 10:37 | P.DS ---
Providers Date of admission: 07/02/19 17:31 Attending physician: Rosalinda Nicole MD Consults: 07/02/19 18:02 Consult Physician Routine Consulting Provider: Lj Navarrete Consult Reason/Comments: hand swelling Do you want consulting provider notified?: Yes 07/02/19 18:04 Consult Physician Routine Consulting Provider: Parvez Neville Consult Reason/Comments: cellulitis , IVDA Do you want consulting provider notified?: Yes 07/04/19 09:43 Consult Physician Routine Consulting Provider: Murali Urban Consult Reason/Comments: 2 areas of possible abscess over LUE Do you want consulting provider notified?: Yes Primary care physician: Stated None Hospital Course: Doses of discharge Cellulitis of the left upper extremity secondary to missing a vein in IV drug abuse patient IV drug abuse Chronic conditions Depression, denies suicidal or homicidal ideation Hospital course 39-year-old female with with depression, and IV drug abuse. Comes in due to swelling redness and fevers over her left hand extending to the mid left forearm. Due to IV drug abuse. Patient admitted for cellulitis of the left upper extremity and left hand degenerative drug abuse with anticipated length of stay less than tWo midnight 07/03 Patient doing better today continues to be on vancomycin ID agrees with current antibiotics continue to monitor and follow up on blood culture results. Optimize pain control Await final culture results and ID recommendations for discharge planning possibly tomorrow 07/04 Patient shows significant improvement currently on vancomycin. Blood cultures negative To areas of erythema and induration with slight fluctuation concerning for underlying abscess Swelling of the hand has improved significantly minimal discomfort with active range of motion. Await general surgery evaluation for need of drainage Possible discharge in the morning, on oral antibiotics 07/05 Patient was evaluated by both orthopedics and general surgery. Did not feel that there is abscess formation that needs drainage. No plans for surgical intervention at this time. ID cleared the patient for discharge if no plans for I&D, patient will be discharged on oral antibiotics Bactrim twice a day for 10 days Patient seen and examined on day of discharge, vital signs are stable patient reports minimal discomfort with movement of her hand swelling has went down significantly. Constitutional: vital signs stable, Not in acute distress, pleasant, conversant Lungs: Clear to auscultation bilaterally, clear to percussion, normal respiratory effort Cardiovascular: Regular rate and rhythm, no murmurs, no gallops, no rubs, no peripheral edema Skin: Only 2 small areas of redness and slight induration over the dorsum of her left wrist and the dorsum of her left forearm, surgery and orthopedic with no plans for drainage as no identified abscess formation no tenderness to palpation no drainage. No tenderness to palpation. No drainage no open wounds Extremities: Left hand swelling has improved significantly, capillary refill is immediate over the left hand, minimal discomfort to active range of motion. Psych: Alert, oriented to place, person and time, appropriate affect, intact kalpesh gment Follow-up with PCP Follow-up with ID Prescription for Bactrim double strength twice a day for 10 days Patient counseled to quit drug of abuse Patient is being discharged in stable clinical condition Labs reviewed and stable. Blood culture is negative 40 minutes were spent discharging this patient, and more than 50% of the time was spent in counseling the patient and family and in coordinating care. Patient Condition at Discharge: Stable Plan - Discharge Summary Discharge Rx Participant: Yes New Discharge Prescriptions: New Sulfamethox-Tmp 800-160Mg [Bactrim DS 800-160 mg] 1 tab PO Q12HR #20 tab Ibuprofen [Motrin] 400 mg PO Q6HR PRN #30 tab PRN Reason: Mild Pain Or Fever > 100.5 Continue ARIPiprazole [Abilify] 5 mg PO DAILY busPIRone HCL 15 mg PO BID Citalopram Hydrobromide [Citalopram HBr] 10 mg PO DAILY traZODone HCL 100 mg PO HS Discharge Medication List ARIPiprazole [Abilify] 5 mg PO DAILY 07/02/19 [History] Citalopram Hydrobromide [Citalopram HBr] 10 mg PO DAILY 07/02/19 [History] busPIRone HCL 15 mg PO BID 07/02/19 [History] traZODone HCL 100 mg PO HS 07/02/19 [History] Ibuprofen [Motrin] 400 mg PO Q6HR PRN #30 tab 07/05/19 [Rx] Sulfamethox-Tmp 800-160Mg [Bactrim DS 800-160 mg] 1 tab PO Q12HR #20 tab 07/05/19 [Rx] Follow up Appointment(s)/Referral(s): None,Stated [Primary Care Provider] - 1-2 days (Pt prefers to make her own appointment) Parvez Neville MD [STAFF PHYSICIAN] - 1 Week (Pt prefers to make her own appointment) Patient Instructions/Handouts: Cellulitis (DC), Polysubstance Abuse (ED) Activity/Diet/Wound Care/Special Instructions: Regular diet Follow up at [place] Activity as tolerated. No IV drug usage, keep left arm clean and elevate at rest. Call primary care DR or go to ER if redness or swelling worsens. Discharge Disposition: HOME SELF-CARE
--- NOTE | 2019-07-05 14:01 | PN ---
PROGRESS NOTE DATE OF SERVICE: 07/05/2019 REASON FOR FOLLOWUP: Left hand and forearm abscess and cellulitis. INTERVAL HISTORY: The patient is currently afebrile, has been breathing comfortably. Overall pain and discomfort to the left hand and forearm area has decreased. Denies any chest pain or cough. No abdominal pain. No diarrhea. PHYSICAL EXAMINATION: Blood pressure 110/66, pulse of 98, temperature 98.5. She is 97% on room air. General description is a middle-aged female lying in bed in no distress. RESPIRATORY SYSTEM: Unlabored breathing, clear to auscultation anteriorly. HEART: S1, S2. Regular rate and rhythm. ABDOMEN: Soft, no tenderness. Left hand and forearm area swelling has decreased, no drainage. LABS: White count 4.7. Blood culture has been negative. DIAGNOSTIC IMPRESSION AND PLAN: Patient with left dorsum and forearm abscess cellulitis related to IV drug use. Patient overall improvement on vancomycin to finish therapy with oral Bactrim DS and close outpatient followup. Questions and concerns were answered. MMODL / IJN: [id number] /
== END 2019-07-05 14:05 | disposition home or self-care (01) ==
LOC: EC 13:32 → 6NMEDSUR 17:31
PROVIDERS: ADMIT Internal Medicine; ATTEND Internal Medicine
DX: L03.114 Cellulitis of left upper limb (principal); L03.019 Cellulitis of unspecified finger; F19.10 Other psychoactive substance abuse, uncomplicated; F32.9 Major depressive disorder, single episode, unspecified; F15.90 Other stimulant use, unspecified, uncomplicated; L02.414 Cutaneous abscess of left upper limb; F17.200 Nicotine dependence, unspecified, uncomplicated; F41.9 Anxiety disorder, unspecified; Z82.49 Family history of ischemic heart disease and other diseases of the circulatory system; Z79.899 Other long term (current) drug therapy
CPT/HCPCS: 96376 ×3; 96361 ×4; 96366 ×5; 96372 ×5; 96365; 96367; 96375; 99284; 36415; 80053 ×3; 82565; 83605; 85025 ×3; 80202; 87040; 73090; 73100; G0378 ×4; J2543; J3370 ×4; J1644 ×4; J1885 ×3

== ENCOUNTER 2020-03-14 21:17 | Emergency (ER) | payer OTHER ==
[2020-03-14] MEDS ORDERED: IBUPROFEN 600 MG TAB PO STA (22:12)
[2020-03-14] MEDS ORDERED: LORazepam 1 MG TAB PO STA (22:12)
[2020-03-14 23:05] LABS: Amphetamine Screen,Urine Not Detected (NotDetected); Barbiturate Screen,Urine Not Detected (NotDetected); Benzodiazepines Screen,Urine Not Detected (NotDetected); Cocaine Screen,Urine Not Detected (NotDetected); Methadone Screen, Urine Not Detected (NotDetected); Opiate Screen,Urine Not Detected (NotDetected); Oxycodone Screen, Urine Not Detected (NotDetected); Phencyclidine Screen,Urine Not Detected (NotDetected); Tricyclic Antidepressant,Urine Not Detected (NotDetected); Urn Cannabinoid Scrn Not Detected (NotDetected)
--- NOTE | 2020-03-15 00:56 | ED ---
Psych HPI - General Source: patient Mode of arrival: EMS <Joleen Cline - Last Filed: 03/15/20 03:18> <Kyree Betancourt - Last Filed: 03/19/20 15:26> - General Chief Complaint: Psychiatric Symptoms Stated Complaint: Mental Health Time Seen by Provider: 03/14/20 21:57 - History of Present Illness Initial Comments: 39-year-old female patient presenting for psychiatric evaluation. Patient states she has been quite depressed. States she is having suicidal thoughts. Patient states that the suicidal thoughts started today. She is currently at [facility] for methamphetamine addiction. Patient has been there for the last week. Patient denies any attempt to commit suicide today. States she has attempted in the past. States she has been admitted to mental health facilities in the past, never [place]. She denies any hallucinations. Denies homicidal ideation. Denies any alcohol or drug use today. Denies any current physical symptoms or concerns. (Joleen Cline) - Related Data Home Medications Medication Instructions Recorded Confirmed ARIPiprazole [Abilify] 10 mg PO DAILY@0600 03/14/20 03/14/20 Acetaminophen Tab [Tylenol] 650 mg PO Q4H PRN 03/14/20 03/14/20 Calcium/Magnesium/Zinc 2 tab PO TID PRN 03/14/20 03/14/20 334mg/134mg/5mg Chlorpheniramine Maleate 4 mg PO Q4H PRN 03/14/20 03/14/20 [Chlor-Trimeton] Citalopram Hydrobromide [CeleXA] 30 mg PO DAILY@0600 03/14/20 03/14/20 Ibuprofen [Motrin] 600 mg PO Q6H PRN 03/14/20 03/14/20 Multivitamins, Thera [Multivitamin 1 tab PO DAILY@0600 03/14/20 03/14/20 (formulary)] Thiamine [Vitamin B-1] 100 mg PO DAILY@0600 03/14/20 03/14/20 traZODone HCL [Desyrel] 100 mg PO HS PRN 03/14/20 03/14/20 Allergies Allergy/AdvReac Type Severity Reaction Status Date / Time No Known Allergies Allergy Verified 03/14/20 23:38 Review of Systems ROS Other: All systems not noted in ROS Statement are negative. <Joleen Cline - Last Filed: 03/15/20 03:18> ROS Other: All systems not noted in ROS Statement are negative. <SerafinKyree - Last Filed: 03/19/20 15:26> ROS Statement: Those systems with pertinent positive or pertinent negative responses have been documented in the HPI. Past Medical History Past Medical History: No Reported History History of Any Multi-Drug Resistant Organisms: None Reported Past Surgical History: Appendectomy Past Anesthesia/Blood Transfusion Reactions: No Reported Reaction Past Psychological History: Depression Past Alcohol Use History: None Reported Past Drug Use History: Methamphetamine - Past Family History Family Family Medical History: Hypertension <Joleen Cline - Last Filed: 03/15/20 03:18> General Exam General appearance: alert, in no apparent distress, other (This is a well- developed, well-nourished adult female patient in no acute distress. Vital signs upon presentation are temperature 98.0F, pulse 80, respirations 18, blood pressure 127/78, pulse ox 99% on room air.) Eye exam: Present: normal appearance, PERRL, EOMI. Absent: scleral icterus, conjunctival injection, periorbital swelling Respiratory exam: Present: normal lung sounds bilaterally. Absent: respiratory distress, wheezes, rales, rhonchi, stridor Cardiovascular Exam: Present: regular rate, normal rhythm, normal heart sounds. Absent: systolic murmur, diastolic murmur, rubs, gallop, clicks GI/Abdominal exam: Present: soft, normal bowel sounds. Absent: distended, tende rness, guarding, rebound, rigid Neurological exam: Present: alert, oriented X3, CN II-XII intact Psychiatric exam: Present: normal affect, normal mood Skin exam: Present: warm, dry, intact, normal color. Absent: rash <Joleen Cline - Last Filed: 03/15/20 03:18> Course <SerafinKyree - Last Filed: 03/19/20 15:26> Vital Signs 03/14/20 03/15/20 03/16/20 21:51 20:53 06:50 Temperature 98.0 F 97.6 F 98.1 F Pulse Rate 80 76 72 Respiratory 18 18 16 Rate Blood Pressure 127/78 112/68 94/54 O2 Sat by Pulse 99 98 98 Oximetry 03/16/20 03/17/20 03/17/20 12:57 06:15 11:34 Temperature 98.1 F 98.2 F 98.3 F Pulse Rate 68 83 76 Respiratory 14 18 18 Rate Blood Pressure 91/42 97/52 117/74 O2 Sat by Pulse 96 100 98 Oximetry 03/18/20 06:30 Temperature 98.2 F Pulse Rate 84 Respiratory 16 Rate Blood Pressure 118/64 O2 Sat by Pulse 98 Oximetry - Reevaluation(s) Reevaluation #1: 03/15/20 13:05 The patient rested comfortably throughout the morning and afternoon. Transfer is pending transfer. Thus far no facilities are available. (Kyree Betancourt) Reevaluation #2: 03/16/20 14:32 Patient rested comfortably throughout the morning and afternoon. Pending transfer. Case is endorsed to Dr. Benton at our shift change (Kyree Betancourt) Reevaluation #3: 03/19/20 15:25 8. White count for this patient she was discharged [facility] for inpatient evaluation and treatment. (Kyree Betancourt) Medical Decision Making <Joleen Cline - Last Filed: 03/15/20 03:18> - Lab Data Result diagrams: 03/15/20 03:45 03/15/20 03:45 <Kyree Betancourt - Last Filed: 03/19/20 15:26> - Medical Decision Making 39 year-old female patient presented to the emergency department for evaluation of suicidal ideation and depression. Patient was cleared medically. She was evaluated by emergency psychiatric services, she does meet inpatient criteria so [place]. Care is handed off to my attending Dr. Alarcon @ 0320. (Joleen Cline) - Lab Data Lab Results 03/14/20 03/14/20 03/15/20 Range/Units 22:38 22:38 03:35 WBC (3.8-10.6) k/uL RBC (3.80-5.40) m/uL Hgb (11.4-16.0) gm/dL Hct (34.0-46.0) % MCV (80.0-100.0) fL MCH (25.0-35.0) pg MCHC (31.0-37.0) g/dL RDW (11.5-15.5) % Plt Count (150-450) k/uL Neutrophils % % Lymphocytes % % Monocytes % % Eosinophils % % Basophils % % Neutrophils # (1.3-7.7) k/uL Lymphocytes # (1.0-4.8) k/uL Monocytes # (0-1.0) k/uL Eosinophils # (0-0.7) k/uL Basophils # (0-0.2) k/uL Sodium (137-145) mmol/L Potassium (3.5-5.1) mmol/L Chloride (98-107) mmol/L Carbon Dioxide (22-30) mmol/L Anion Gap mmol/L BUN (7-17) mg/dL Creatinine (0.52-1.04) mg/dL Est GFR (CKD-EPI)AfAm (>60 ml/min/1.73 sqM) Est GFR (CKD-EPI)NonAf (>60 ml/min/1.73 sqM) Glucose (74-99) mg/dL Calcium (8.4-10.2) mg/dL Total Bilirubin (0.2-1.3) mg/dL AST (14-36) U/L ALT (4-34) U/L Alkaline Phosphatase (38-126) U/L Total Protein (6.3-8.2) g/dL Albumin (3.5-5.0) g/dL Urine Color Light Yellow Urine Appearance Clear (Clear) Urine pH 6.5 (5.0-8.0) Ur Specific [place] 1.017 (1.001-1.035) Urine Protein Negative (Negative) Urine Glucose (UA) Negative (Negative) Urine Ketones Negative (Negative) Urine Blood Negative (Negative) Urine Nitrite Negative (Negative) Urine Bilirubin Negative (Negative) Urine Urobilinogen <2.0 (<2.0) mg/dL Ur Leukocyte Esterase Negative (Negative) Urine HCG, Qual Not Detected (Not Detectd) Salicylates mg/dL Urine Opiates Screen Not Detected (NotDetected) Ur Oxycodone Screen Not Detected (NotDetected) Urine Methadone Screen Not Detected (NotDetected) Ur Propoxyphene Screen Not Detected (NotDetected) Acetaminophen ug/mL Ur Barbiturates Screen Not Detected (NotDetected) U Tricyclic Antidepress Not Detected (NotDetected) Ur Phencyclidine Scrn Not Detected (NotDetected) Ur Amphetamines Screen Not Detected (NotDetected) U Methamphetamines Scrn Not Detected (NotDetected) U Benzodiazepines Scrn Not Detected (NotDetected) Urine Cocaine Screen Not Detected (NotDetected) U Marijuana (THC) Screen Not Detected (NotDetected) 03/15/20 03/15/20 Range/Units 03:45 03:45 WBC 6.4 (3.8-10.6) k/uL RBC 4.16 (3.80-5.40) m/uL Hgb 12.1 (11.4-16.0) gm/dL Hct 38.6 (34.0-46.0) % MCV 92.9 (80.0-100.0) fL MCH 29.0 (25.0-35.0) pg MCHC 31.3 (31.0-37.0) g/dL RDW 14.0 (11.5-15.5) % Plt Count 342 (150-450) k/uL Neutrophils % 51 % Lymphocytes % 29 % Monocytes % 8 % Eosinophils % 10 % Basophils % 1 % Neutrophils # 3.2 (1.3-7.7) k/uL Lymphocytes # 1.8 (1.0-4.8) k/uL Monocytes # 0.5 (0-1.0) k/uL Eosinophils # 0.7 (0-0.7) k/uL Basophils # 0.1 (0-0.2) k/uL Sodium 134 L (137-145) mmol/L Potassium 3.9 (3.5-5.1) mmol/L Chloride 105 (98-107) mmol/L Carbon Dioxide 23 (22-30) mmol/L Anion Gap 6 mmol/L BUN 25 H (7-17) mg/dL Creatinine 0.93 (0.52-1.04) mg/dL Est GFR (CKD-EPI)AfAm >90 (>60 ml/min/1.73 sqM) Est GFR (CKD-EPI)NonAf 78 (>60 ml/min/1.73 sqM) Glucose 94 (74-99) mg/dL Calcium 8.8 (8.4-10.2) mg/dL Total Bilirubin 0.4 (0.2-1.3) mg/dL AST 58 H (14-36) U/L ALT 83 H (4-34) U/L Alkaline Phosphatase 94 (38-126) U/L Total Protein 7.2 (6.3-8.2) g/dL Albumin 3.5 (3.5-5.0) g/dL Urine Color Urine Appearance (Clear) Urine pH (5.0-8.0) Ur Specific [place] (1.001-1.035) Urine Protein (Negative) Urine Glucose (UA) (Negative) Urine Ketones (Negative) Urine Blood (Negative) Urine Nitrite (Negative) Urine Bilirubin (Negative) Urine Urobilinogen (<2.0) mg/dL Ur Leukocyte Esterase (Negative) Urine HCG, Qual (Not Detectd) Salicylates <1.0 mg/dL Urine Opiates Screen (NotDetected) Ur Oxycodone Screen (NotDetected) Urine Methadone Screen (NotDetected) Ur Propoxyphene Screen (NotDetected) Acetaminophen <10.0 ug/mL Ur Barbiturates Screen (NotDetected) U Tricyclic Antidepress (NotDetected) Ur Phencyclidine Scrn (NotDetected) Ur Amphetamines Screen (NotDetected) U Methamphetamines Scrn (NotDetected) U Benzodiazepines Scrn (NotDetected) Urine Cocaine Screen (NotDetected) U Marijuana (THC) Screen (NotDetected) Disposition <Joleen Cline - Last Filed: 03/15/20 03:18> Is patient prescribed a controlled substance at d/c from ED?: No - Out of Hospital Transfer - Req. Specs Out of Hospital Transfer - Requested Specifics: Psychiatric Non-ICU <Kyree Betancourt - Last Filed: 03/19/20 15:26> Clinical Impression: Depression, Suicidal ideation Disposition: TRANSFER TO PSYCH HOSP/UNIT Condition: Stable Referrals: Nonstaff,Physician [Primary Care Provider] - 1-2 days
[2020-03-15 03:39] LABS: Appearance,Urine Clear (Clear); Bilirubin,Urine Negative (Negative); Blood,Urine Negative (Negative); Color,Urine Light Yellow; Glucose,Urine (UA) Negative (Negative); Ketones,Urine Negative (Negative); Leukocyte Esterase,Urine Negative (Negative); Nitrite,Urine Negative (Negative); PH, Urine 6.5 (5.0-8.0); Protein,Urine Negative (Negative); Specific Gravity,Urine 1.017 (1.001-1.035); Urobilinogen,Urine <2.0 mg/dL (<2.0)
[2020-03-15 04:02] LABS: Basophils # (A) 0.1 k/uL (0-0.2); Basophils % (A) 1 %; Eosinophils # (A) 0.7 k/uL (0-0.7); Eosinophils % (A) 10 %; HCT 38.6 % (34.0-46.0); HGB 12.1 gm/dL (11.4-16.0); Lymphocytes # (A) 1.8 k/uL (1.0-4.8); Lymphocytes % (A) 29 %; MCHC 31.3 g/dL (31.0-37.0); MCV 92.9 fL (80.0-100.0); Mean Platelet Volume 7.2; Monocytes # (A) 0.5 k/uL (0-1.0); Monocytes % (A) 8 %; Neutrophils # (A) 3.2 k/uL (1.3-7.7); Neutrophils % (A) 51 %; Platelet Count 342 k/uL (150-450); RBC 4.16 m/uL (3.80-5.40); WBC 6.4 k/uL (3.8-10.6)
[2020-03-15 04:11] LABS: ALT 83 U/L (4-34); AST 58 U/L (14-36); Acetaminophen <10.0 ug/mL; African American GFR (CKD) >90 (>60 ml/min/1.73 sqM); Albumin 3.5 g/dL (3.5-5.0); Alkaline Phosphatase 94 U/L (38-126); Anion Gap 6 mmol/L; Blood Urea Nitrogen 25 mg/dL (7-17); Calcium 8.8 mg/dL (8.4-10.2); Carbon Dioxide 23 mmol/L (22-30); Chloride 105 mmol/L (98-107); Glucose 94 mg/dL (74-99); Non-African American GFR(CKD) 78 (>60 ml/min/1.73 sqM); Potassium 3.9 mmol/L (3.5-5.1); Salicylate <1.0 mg/dL; Sodium 134 mmol/L (137-145); Total Bilirubin 0.4 mg/dL (0.2-1.3); Total Protein 7.2 g/dL (6.3-8.2)
[2020-03-15] MEDS ORDERED: IBUPROFEN 600 MG TAB PO STA ×2 (08:07→13:36)
[2020-03-15] MEDS ORDERED: LORazepam 1 MG TAB PO STA ×2 (08:07→13:36)
[2020-03-15] MEDS: traZODone HCL 50 MG TAB PO PRN (21:44)
[2020-03-16] MEDS: CITALOPRAM HYDROBROMIDE 10 MG TAB PO SCH (06:54)
[2020-03-16] MEDS: ARIPiprazole 10 MG TAB PO SCH (06:55)
[2020-03-16] MEDS: LORazepam 1 MG TAB PO PRN ×2 (07:22→16:12)
[2020-03-16] MEDS ORDERED: IBUPROFEN 600 MG TAB PO STA (13:42)
[2020-03-16] MEDS ORDERED: NICOTINE 14MG/24HR PATCH TRANSDERM STA (16:41)
[2020-03-16] MEDS ORDERED: LORazepam 2 MG/ML INJ IM STA (18:41)
[2020-03-16] MEDS: traZODone HCL 50 MG TAB PO PRN (20:58)
[2020-03-17] MEDS: LORazepam 1 MG TAB PO PRN ×3 (02:39→16:37)
[2020-03-17] MEDS ORDERED: CITALOPRAM HYDROBROMIDE 10 MG TAB PO SCH (06:00)
[2020-03-17] MEDS ORDERED: ARIPiprazole 10 MG TAB PO SCH (06:00)
[2020-03-17] MEDS: ARIPiprazole 10 MG TAB PO SCH (07:33)
[2020-03-17] MEDS: CITALOPRAM HYDROBROMIDE 10 MG TAB PO SCH (07:33)
[2020-03-17] MEDS ORDERED: traZODone HCL 50 MG TAB PO PRN (10:06)
[2020-03-17] MEDS ORDERED: NICOTINE 21MG/24HR PATCH TRANSDERM STA (16:29)
[2020-03-17] MEDS ORDERED: NICOTINE 14MG/24HR PATCH TRANSDERM STA (16:41)
[2020-03-18] MEDS: LORazepam 1 MG TAB PO PRN (03:41)
[2020-03-18] MEDS ORDERED: CITALOPRAM HYDROBROMIDE 10 MG TAB PO SCH (06:00)
[2020-03-18] MEDS ORDERED: ARIPiprazole 10 MG TAB PO SCH (06:00)
[2020-03-18 07:33] VITALS: BP 118/64; PULSE 84; RESP 16; TEMP 98.2
== END 2020-03-18 07:52 ==
LOC: EC 21:17
DX: F32.9 Major depressive disorder, single episode, unspecified (principal); R45.851 Suicidal ideations; Z79.899 Other long term (current) drug therapy
CPT/HCPCS: 82075; 36415; 80053; 85025; 81003; 81025; 80306; 83520; 99285; 96372; G0480; S4990 ×2; J2060; 80329